=== PATIENT | female | born 1985 | race Caucasian/White ===

== ENCOUNTER 2017-09-01 01:10 | Inpatient (IN) | payer MEDICAID ==
[2017-09-01] MEDS ORDERED: Lidocaine 2% MPF (5 ml) Inj ONE (01:42)
[2017-09-01 01:45] VITALS: BMI 37.2
[2017-09-01 02:00] LABS: BASO # 0.1 K/uL (0.0-0.2); BASO % 0.5 % (0.0-2.0); EOS # 0.1 K/uL (0.0-0.7); EOS % 0.6 % (0.0-4.0); HEMOGLOBIN 13.5 g/dL (11.0-16.0); LYMPH # 3.3 K/uL (1.0-4.3); LYMPH % 23.8 % (20.0-40.0); MEAN CELL VOLUME 83.7 fL (81.0-99.0); MEAN CORPUSCULAR HEMOGLOBIN 28.4 pg (27.0-31.0); MEAN PLATELET VOLUME 8.9 fL (7.2-11.7); MONO # 0.8 K/uL (0.0-0.8); MONO % 5.4 % (0.0-10.0); NEUT # 9.7 K/uL (1.8-7.0); NEUT % 69.7 % (50.0-75.0); RBC 4.75 Mil/uL (3.80-5.20); RED CELL DISTRIBUTION WIDTH 14.3 % (11.5-14.5)
[2017-09-01 02:34] LABS: ALBUMIN 3.6 g/dL (3.5-5.0); ALT/SGPT 24 U/L (9-52); AST/SGOT 31 U/L (14-36); BLOOD UREA NITROGEN 6 mg/dL (7-17); GFR AFRICAN-AMERICAN > 60; GFR NON-AFRICAN AMERICAN > 60
[2017-09-01] MEDS ORDERED: Lidocaine Hydrochloride 5 ML INJ ONE (03:04)
--- NOTE | 2017-09-01 03:51 | OBHP ---
Datetime: 09/01/2017 03:49 Admit Comment, IP Provider: 31 yo edc 5/6 by us presents to [facility] w/ c/o labor onset @ 12am w / srom @12:30. states ob hx unremarkable. denies +gbs w/ preg. pt left ob chart in car. pmhx:denies pshx: denies obhx: x2; sabx2 medic:pnv allerg: motrin rash shx: denies etoh, illicit drugs or tobacco i: 40.3wks labor p: admit for delivery Datetime: 09/01/2017 03:40 IP Adm Impression: Term, intrauterine IP Admit Plan: Admit to unit Pelvic Type - PN: Adequate Extremities - PN: Normal Heart - PN: Normal Neurologic - PN: Normal HEENT - PN: Normal General - PN: Normal Presentation-Admit: Vertex FHR - Baseline A Provider: 130 Membranes, Provider: Ruptured EGA AdmitDate IP: 40.3 IP Chief Complaint: Uterine contractions NICHD Variability Prov Fetus A: Moderate 6-25bpm Dilatation, Provider: 9 Effacement, Provider: 100 Station, Provider: -3 Genitourinary Exam: Normal
--- NOTE | 2017-09-01 04:01 | OBDS ---
DELIVERY PERSONNEL Delivery Doctor: Tk Perla MD Scrub Nurse: Carol Smumers OBT Wireworker Supervisor: Jaz Smith RN MATERNAL INFORMATION Delivery Anesthesia: Local Medications in Delivery: PITOCIN IN LR Estimated Blood Loss (ml): 350 Placenta Cultured: Yes Maternal Complications: None Provider Comments: deliv note intrapart dx: 40.3wks; labor pp dx: same procedure: ; repair of 1st degree lacer w/ 3-0 chromic ob: o[place]etos anesth: 5cc of 2%local lidocaine and 5cc of 1% local lidocaine ebl: 350cc findings: viable male: jw; double tight nuchal cord, clamped and cut at perineum; 9_9 wt 9lb7ox path: nonte neon remained in br w/ pt. LABOR SUMMARY EDC: 08/29/2017 00:00 No. Babies in Womb: 1 Attempted: No Labor Anesthesia: None LABOR INFORMATION Onset of Labor: 09/01/2017 00:00 Complete Dilatation: 09/01/2017 01:26 Steroids Given: None MEMBRANES Membranes Rupture Method: Spontaneous Rupture of Membranes: 09/01/2017 00:30 Length of Rupture (hrs): 2.37 Amniotic Fluid Color: Clear STAGES OF LABOR Stage 1 hrs: 1 Stage 1 min: 26 Stage 2 hrs: 1 Stage 2 min: 26 Stage 3 hrs: 0 Stage 3 min: 7 Total Time in Labor hrs: 2 Total Time in Labor min: 59 VAGINAL DELIVERY Episiotomy: None Laceration Extension: N/A Laceration Type: Perineal; Vaginal Laceration Repair: Yes Laceration Repair Note: 1st degree laceration repaired with 3-0 chromic Initial Vag Sponge Count: 10+1Lap Initial Vag Sharps Count: 0 BABY A INFORMATION Infant Delivery Date/Time: 09/01/2017 02:52 Method of Delivery: Vaginal Born in Route : No : N/A Forceps: N/A Vacuum Extraction: N/A Shoulder Dystocia : No SHOULDER DYSTOCIA BABY A Delivery Date/Time: 09/01/2017 02:52 PRESENTATION/POSITION BABY A Presentation: Cephalic Cephalic Presentation: Vertex Vertex Position: Right Occipital Anterior Breech Presentation: N/A PLACENTA INFORMATION BABY A Placenta Delivery Time : 09/01/2017 02:59 Placenta Method of Delivery: Spontaneous Placenta Status: Delivered SCORES BABY A Heart Rate 1 min: >100 bpm Resp Effort 1 min: Good Cry Reflex Irritability 1 min: Cough or Sneeze or Pulls Away Muscle Tone 1 min: Active Motion Color 1 min: Body [place], Extremities Blue SCORE 1 MIN: 9 Heart Rate 5 min: >100 bpm Resp Effort 5 min: Good Cry Reflex Irritability 5 min: Cough or Sneeze or Pulls Away Muscle Tone 5 min: Active Motion Color 5 min: Body [place], Extremities Blue SCORE 5 MIN: 9 INFORMATION BABY A Gestational Age at Delivery: 40.3 Gestational Status: Term Outcome : Liveborn Infant Condition : Stable Sex: Male IDENTIFICATION/MEDS BABY A ID Band Number: [id number] ID Band Location: Left Leg; Left Arm Sensor Applied: Yes Sensor Number: [id number] Sensor Location : Cord Clamp WEIGHT/LENGTH BABY A Birthweight (gms): 4285 Weight (lb): 9 Weight (oz): 7 Length Inches: 21.00 Infant Length cms: 53.3 CORD INFORMATION BABY A No. Cord Vessels: 3 Nuchal Cord : Around Neck x2, Tight Cord Blood Taken: Yes Suction: None ASSESSMENT BABY A Complications: None Physical Findings at Delivery: Within Normal Limits Infant Respirations: Appears Normal Care By: DR BONILLA Transferred To: Remains with Mother
[2017-09-01] MEDS ORDERED: Benzocaine/Menthol 20%-0.5% Topical Spray (60 ml) TOP PRN (04:09)
[2017-09-01] MEDS ORDERED: Oxycodone/Acetaminophen 5/325 mg Tab PO PRN (04:09)
[2017-09-01] MEDS ORDERED: Lactated Ringer's 1,000 ML IV SCH (04:15)
[2017-09-01] MEDS ORDERED: Measles, Mumps, and Rubella 0.5 ML VIAL SC ONE (10:09)
[2017-09-02] MEDS ORDERED: Hydrocortisone 2.5% Rectal Cream(30 gm) PR PRN (00:35)
[2017-09-02 08:12] LABS: HEMOGLOBIN 11.8 g/dL (11.0-16.0); MEAN CELL VOLUME 83.8 fL (81.0-99.0); MEAN CORPUSCULAR HEMOGLOBIN 28.7 pg (27.0-31.0); MEAN CORPUSCULAR HGB CONC 34.2 g/dL (33.0-37.0); MEAN PLATELET VOLUME 8.7 fL (7.2-11.7); RBC 4.11 Mil/uL (3.80-5.20); RED CELL DISTRIBUTION WIDTH 14.4 % (11.5-14.5); WHITE BLOOD COUNT 12.4 K/uL (4.8-10.8)
--- NOTE | 2017-09-02 08:35 | OBPPN ---
Datetime: 09/02/2017 08:09 PP Pain Prov: Within normal limits PP Nausea Prov: Denies PP Flatus Prov: Yes PP BM Prov: Yes PP Breasts Prov: Normal PP Heart Prov: Normal PP Lungs Prov: Normal PP Abdomen/Uterus Prov: Normal PP Lochia Prov: Normal PP Vulva/Perineum Prov: Normal PP CVA Tenderness Prov: Normal PP Extremities Prov: Normal PP C/S Incision Prov: Not Applicable PP Progress Prov: Normal PP Comments Phys Exam Prov: Breasts: no cracked nipples Abdoment: Soft. Non distended. Fundus firm, mobile, non tender, 1 FB above umbilicus. Mild lochia rubra Extremities: no calf tenderness, cyanosis, or edema All other systems reviewed and are negative PP Impression Prov: Normal progression PP Plan Prov: Continue present management PP Progress Note Prov: Patient received in bed, in room 452; in good spirits. . Denies headaches, nausea, vomiting. Voiding and ambulating without difficulty. Desires circumcision for ne wborn. P.E.: as above. In NAD. Awake, alert, oriented to time, person and place. Pleasant and cooperati ve. - PPD#1 H/H 11.8/ 34.5. Rh (+) Assessment: PPD#1, 31 y.o. P3023, S/P . Afebrile, vital signs stable. Consent obtained for circ umcision of male; R/B/C discussed. Patient's questions and concerns were addressed and answe red. Patient is clinically stable. Plan: 1) Continue present managment 2) Ancitipcate discharge home 09/03/17 Vital Signs Provider PP: Reviewed; Within Normal Limits
[2017-09-03 08:30] VITALS: RESP 18
--- NOTE | 2017-09-03 08:35 | OBPPN ---
Datetime: 09/03/2017 08:30 PP Pain Prov: Within normal limits PP Nausea Prov: Denies PP Flatus Prov: Yes PP BM Prov: Yes PP Breasts Prov: Normal PP Heart Prov: Normal PP Lungs Prov: Normal PP Abdomen/Uterus Prov: Normal PP Lochia Prov: Normal PP Vulva/Perineum Prov: Normal PP Extremities Prov: Normal PP Progress Prov: Normal PP Impression Prov: Normal progression PP Plan Prov: Discharge PP Progress Note Prov: s: perineal pain decreased. tolerating reg diet. no c/o. i: s/p doing well p: d/c home. pp precaut sitz baths, perineal hygiene, hemorrhoid care d/w pt. continue pnv, motrin for pain. IP PP Procedures: None Vital Signs Provider PP: Within Normal Limits
--- NOTE | 2017-09-03 08:38 | OBDCSUM ---
Datetime: 09/03/2017 08:33 Discharged to, Provider: Home Follow up at, Provider: [facility]inic Disch Instr Activity: Normal activity Disch Instr Diet: Regular Discharge Instructions, Provider: Routine instructions given Discharge Diagnosis, Provider: Term Delivered Discharge Time: 09/03/2017 08:33 Follow up in weeks, Provider: 4-6wks Disch Activity Restrictions: No sexual activity; Nothing in vagina - [place], tampons, douche Discharge Comment, Provider: p: d/c home. pp precaut sitz baths, perineal hygiene, hemorrhoid care d/w pt. continue pnv, motrin for pain. Contraception after Delivery: Undecided
[2017-09-03 16:20] VITALS: BP 128/80; PULSE 80; TEMP 98.3; O2SAT 98
== END 2017-09-03 18:30 | disposition home or self-care (01) | DRG 373 ==
LOC: C.EROB 01:10 → C.4D 01:30 → C.4M 05:40
PROVIDERS: ADMIT Obstetrics & Gynecology; ATTEND Obstetrics & Gynecology
PROC: 10E0XZZ Delivery of Products of Conception, External Approach (ICD-10-PCS; principal; 2017-09-01)
PROC: 0HQ9XZZ Repair Perineum Skin, External Approach (ICD-10-PCS; 2017-09-01)
DX: O69.1XX0 Labor and delivery complicated by cord around neck, with compression, not applicable or unspecified (principal); O70.0 First degree perineal laceration during delivery; Z3A.40 40 weeks gestation of pregnancy; Z37.0 Single live birth

== ENCOUNTER 2018-06-07 23:57 | Emergency (ER) | payer MEDICAID ==
[2018-06-07 23:57] VITALS: BMI 37.2
[2018-06-08 00:10] VITALS: RESP 16
[2018-06-08 01:12] LABS: SQUAMOUS EPITHIAL 8 /hpf (0-5); URINE BILIRUBIN NEGATIVE (NEGATIVE); URINE BLOOD NEGATIVE (NEGATIVE); URINE CLARITY Hazy (Clear); URINE COLOR Yellow (YELLOW); URINE GLUCOSE (UA) NORMAL (Normal); URINE LEUKOCYTE ESTERASE TRACE Leu/uL (Negative); URINE PROTEIN NEGATIVE (NEGATIVE); URINE UROBILINOGEN NORMAL mg/dL (0.2-1.0)
--- NOTE | 2018-06-08 01:32 | C.PDOC ---
History Of Present Illness 32 year old female presents to the ER with a complaint of right upper back pain the worsens with movement and deep inspiration. Patient was seen by PMD who started her on muscle relaxer and tizanidine which she has been taking with no relief. She states the pain is now radiating to her right upper chest which prompted visit. Denies UTI symptoms, URI symptoms, weakness, numbness, recent travel, or recent state of immobility. Time Seen by Provider: 06/08/18 00:10 Chief Complaint (Nursing): Back Pain History Per: Patient History/Exam Limitations: no limitations Onset/Duration Of Symptoms: Days Current Symptoms Are (Timing): Still Present Quality Of Discomfort: Unable To Describe Previous Symptoms: None Associated Symptoms: None Exacerbating Factor(s): Movement, Other (Deep inspiration) Recent travel outside of the [place]: No Past Medical History Reviewed: Historical Data, Nursing Documentation, Vital Signs Vital Signs: Last Vital Signs Temp 97.8 F 06/08/18 00:02 Pulse Resp 16 06/08/18 00:02 BP 109/75 06/08/18 00:02 Pulse Ox 95 06/08/18 00:02 - Medical History PMH: Denies: Depression, Diabetes, HTN - [facility] Procedures ANESTH INJECT-SPIN CANAL (01/11/13) ARTIF RUPT MEMBRANES NEC (01/11/13) DELIVERY OF PRODUCTS OF CONCEPTION, EXTERNAL APPROACH (09/01/17) MANUAL ASSIST DELIV NEC (01/11/13) MONITORING OF POC, CARDIAC RATE, DRYWALL WORKER APPROACH (06/08/16) REPAIR PERINEUM SKIN, EXTERNAL APPROACH (09/01/17) Family History: States: No Known Family Hx - Social History Hx Alcohol Use: No Hx Substance Use: No Review Of Systems Constitutional: Negative for: Fever, Chills ENT: Negative for: Nose Discharge, Nose Congestion, Throat Pain Respiratory: Negative for: Cough, Shortness of Breath Genitourinary: Negative for: Dysuria, Hematuria Musculoskeletal: Positive for: Back Pain Neurological: Negative for: Weakness, Numbness Physical Exam - Physical Exam Appears: Non-toxic Skin: Normal Color, Warm, Dry, No Rash Head: Atraumatic, Normacephalic Eye(s): bilateral: Normal Inspection Chest: Symmetrical, No Tenderness Cardiovascular: Rhythm Regular Respiratory: Normal Breath Sounds, No Rales, No Rhonchi, No Wheezing Back: No CVA Tenderness, Other (Reproducible tenderness to right upper back, no lesions or rash) Neurological/Psych: Oriented x3, Normal Speech ED Course And Treatment - Laboratory Results Lab Results: Urine Color Yellow (YELLOW) 06/08/18 00:41 Urine Clarity Hazy (Clear) 06/08/18 00:41 Urine pH 6.0 (5.0-8.0) 06/08/18 00:41 Ur Specific [place] 1.027 (1.003-1.030) 06/08/18 00:41 Urine Protein Negative mg/dL (NEGATIVE) 06/08/18 00:41 Urine Glucose (UA) Normal mg/dL (Normal) 06/08/18 00:41 Urine Ketones Negative mg/dL (NEGATIVE) 06/08/18 00:41 Urine Blood Negative (NEGATIVE) 06/08/18 00:41 Urine Nitrate Negative (NEGATIVE) 06/08/18 00:41 Urine Bilirubin Negative (NEGATIVE) 06/08/18 00:41 Urine Urobilinogen Normal mg/dL (0.2-1.0) 06/08/18 00:41 Ur Leukocyte Esterase Trace Teo/uL (Negative) 06/08/18 00:41 Urine WBC (Auto) 4 /hpf (0-5) 06/08/18 00:41 Urine RBC (Auto) < 1 /hpf (0-3) 06/08/18 00:41 Ur Squamous Epith Cells 8 /hpf (0-5) H 06/08/18 00:41 Urine HCG, Qual Negative (NEGATIVE) 06/08/18 00:47 Urine HCG, Qual Negative (NEGATIVE) 06/08/18 00:47 O2 Sat by Pulse Oximetry: 95 (Room air) Pulse Ox Interpretation: Normal - Radiology CXR: Interpreted by Me, Viewed By Az CXR Interpretation: Yes: No Acute Disease. No: Infiltrates, Pnemothorax Progress Note: CXR and UA ordered, results were negative. Tramadol administered. Patient is resting comfortably in the ER in no acute distress, vitals are sta ble, will discharge home with Rx and instructions to follow up with PMD. Disposition Counseled Patient/Family Regarding: Diagnosis, Need For Followup, Rx Given - Disposition Referrals: Yehuda Figueroa DO [[facility]] - Disposition: HOME/ ROUTINE Disposition Time: 01:29 Condition: STABLE Additional Instructions: Take tramadol along with muscle relaxers for pain Apply warm compress or heat pads when awake Follow up with [facility] doctor for further evaluation Return to ER if worse Prescriptions: traMADol [Ultram] 50 mg PO TID #15 tab Instructions: Muscle Strain (DC) Forms: [facility] (Persian) - Clinical Impression Clinical Impression: Upper back pain on right side, Muscle strain of upper back - PA / BLAST FURNACE SUPERVISOR / Resident Statement MD/DO has reviewed & agrees with the documentation as recorded. - Scribe Statement The provider has reviewed the documentation as recorded by the Scribe Red Farah All medical record entries made by the Ric were at my direction and personally dictated by me. I have reviewed the chart and agree that the record accurately reflects my personal performance of the history, physical exam, medical decision making, and the department course for this patient. I have also personally directed, reviewed, and agree with the discharge instructions and disposition.
[2018-06-08 01:45] VITALS: BP 108/75; PULSE 80; TEMP 98.3
[2018-06-08 02:19] VITALS: O2SAT 95
--- NOTE | 2018-06-08 08:40 | RAD ---
Date of service: 06/08/2018 HISTORY: right upper back pain COMPARISON: No prior. TECHNIQUE: Chest PA and lateral FINDINGS: LUNGS: No active pulmonary disease. PLEURA: No significant pleural effusion identified. No pneumothorax apparent. CARDIOVASCULAR: No aortic atherosclerotic calcification present. Normal cardiac size. No pulmonary vascular congestion. OSSEOUS STRUCTURES: No significant abnormalities. VISUALIZED UPPER ABDOMEN: Normal. OTHER FINDINGS: None. IMPRESSION: No active disease.
== END 2018-06-08 01:45 | disposition home or self-care (01) ==
LOC: C.ER 23:57
DX: S29.012A Strain of muscle and tendon of back wall of thorax, initial encounter (principal); X58.XXXA Exposure to other specified factors, initial encounter; M54.6 Pain in thoracic spine